=== PATIENT | female | born 1975 | race Hispanic/Latino ===

== ENCOUNTER 2018-06-03 20:24 | Emergency (ER) | payer MEDICAID ==
[2018-06-03] MEDS ORDERED: CEFTRIAXONE SODIUM 1 GM ONE (21:08)
[2018-06-03] MEDS ORDERED: LIDOCAINE HCL-MPF 1% 2ML VIAL ONE (21:08)
[2018-06-03] MEDS ORDERED: IBUPROFEN 600 MG TABLET ONE (21:09)
== END 2018-06-03 21:34 | disposition home or self-care (01) ==
LOC: EDH 20:24
DX: H66.91 Otitis media, unspecified, right ear (principal); E07.9 Disorder of thyroid, unspecified; Z72.0 Tobacco use
CPT/HCPCS: 96372; 99283; J0696; J3490

== ENCOUNTER 2018-07-24 13:15 | Emergency (ER) | payer MEDICAID ==
[2018-07-24] MEDS ORDERED: ONDANSETRON HCL 4 MG/2 ML VIAL ONE (14:00)
[2018-07-24] MEDS ORDERED: SODIUM CHLORIDE 0.9% 1000ML 1,000 ML IV ONE (14:00)
[2018-07-24 14:10] LABS: BASOPHILS % (AUTO) 0.3 % (0.0-5.0); EOSINOPHILS % (AUTO) 2.5 % (0.0-8.0); HEMATOCRIT 30.9 % (36-48); LYMPHOCYTES % (AUTO) 8.6 % (21.0-51.0); MEAN CORPUSCULAR HEMOGLOBIN 27.6 pg (27.0-33.0); MEAN CORPUSCULAR HGB CONC 32.4 g/dL (32.0-36.0); MEAN CORPUSCULAR VOLUME 85.3 fL (79-99); MONOCYTES % (AUTO) 5.4 % (3.0-13.0); NEUTROPHILS % (AUTO) 83.2 % (40.0-77.0); PLATELET COUNT (AUTO) 322 K/uL (130-400); RED BLOOD CELL COUNT(AUTO) 3.62 MIL/uL (4.00-5.50); RED CELL DISTRIBUTION WIDTH 17.7 % (11.0-15.5); WHITE BLOOD COUNT (AUTO) 5.1 K/uL (4.8-10.8)
[2018-07-24 14:30] LABS: ALBUMIN 3.7 g/dL (3.5-5.0); BILIRUBIN,TOTAL 0.5 mg/dL (0.2-1.0); CREATININE 0.7 mg/dL (0.5-1.5); POTASSIUM 3.8 mmol/L (3.5-5.1); TOTAL PROTEIN, SERUM 7.9 g/dL (6.0-8.3)
[2018-07-24] MEDS ORDERED: LEVOFLOXACIN 500 MG TABLET ONE (16:24)
== END 2018-07-24 16:37 | disposition home or self-care (01) ==
LOC: EDH 13:15
DX: A09 Infectious gastroenteritis and colitis, unspecified (principal); E07.9 Disorder of thyroid, unspecified; Z98.890 Other specified postprocedural states; Z72.0 Tobacco use
CPT/HCPCS: 36415; 80053; 85025; 87804 ×2; 96361; 96374; 99285; J2405; J7030

== ENCOUNTER 2019-01-21 20:12 | Emergency (ER) | payer MEDICAID ==
[2019-01-21] MEDS ORDERED: AMOXICILLIN 500 MG CAPSULE PO ONE (20:42)
== END 2019-01-21 20:47 | disposition home or self-care (01) ==
LOC: EDH 20:12
DX: K04.7 Periapical abscess without sinus (principal); E07.9 Disorder of thyroid, unspecified; Z98.51 Tubal ligation status; Z98.890 Other specified postprocedural states; Z72.0 Tobacco use